=== PATIENT | male | born 1995 | race Two or more races ===

== ENCOUNTER 2018-01-07 10:53 | Emergency (ER) | payer SELFPAY ==
[~2018-01-07] VITALS: Ht 177.8 cm; Wt 138.3 kg
[~2018-01-07 10:53] MED LIST: ALBU8.5H5 IH; ALBU8.5H5 INH; ALBUTEROL
[2018-01-07 11:44] VITALS: BP 142/95
== END 2018-01-07 11:48 | disposition home or self-care (01) ==
LOC: ED 11:32
DX: S00.83XA Contusion of other part of head, initial encounter (principal); W20.8XXA Other cause of strike by thrown, projected or falling object, initial encounter; Y93.89 Activity, other specified; Y99.8 Other external cause status; Y92.003 Bedroom of unspecified non-institutional (private) residence as the place of occurrence of the external cause
CPT/HCPCS: 99281